=== PATIENT | female | born 1995 | race Two or more races ===

== ENCOUNTER 2021-10-17 12:11 | Emergency (ER) | payer OTHER ==
[~2021-10-17] VITALS: Ht 144.8 cm; Wt 56.7 kg
[2021-10-17] MEDS ORDERED: PRENATAL + DHA1 EAC1 PO (12:19)
== END 2021-10-17 13:34 | disposition home or self-care (01) ==
LOC: ER 12:11
DX: N61.0 Mastitis without abscess (principal)

== ENCOUNTER 2021-12-12 16:50 | Outpatient (CLI) | payer BC ==
[~2021-12-12 16:50] MED LIST: PRENATAL + DHA1 EAC1 PO
== END 2021-12-12 20:48 | disposition home or self-care (01) ==
LOC: OBS/DEL 16:50
PROVIDERS: ATTEND Obstetrics & Gynecology
DX: O46.8X2 Other antepartum hemorrhage, second trimester (principal); O47.02 False labor before 37 completed weeks of gestation, second trimester; Z3A.25 25 weeks gestation of pregnancy

== ENCOUNTER 2022-02-07 12:26 | Outpatient (CLI) | payer BC | END 2022-02-07 13:44 | disposition home or self-care (01) | LOC: NST 12:26 | PROVIDERS: ATTEND Obstetrics & Gynecology | DX: Z34.83 Encounter for supervision of other normal pregnancy, third trimester (principal) ==

== ENCOUNTER 2022-03-11 01:23 | Inpatient (IN) | payer BC ==
[~2022-03-11] VITALS: Ht 149.9 cm; Wt 62.6 kg
== END 2022-03-13 10:59 | disposition home or self-care (01) | DRG 807 ==
LOC: LDR 01:23 → OB/GYN 10:50
PROVIDERS: ADMIT Obstetrics & Gynecology Maternal & Fetal Medicine; ATTEND Obstetrics & Gynecology Maternal & Fetal Medicine
PROC: 10D07Z6 Extraction of Products of Conception, Vacuum, Via Natural or Artificial Opening (ICD-10-PCS; principal; 2022-03-11)
PROC: 0W8NXZZ Division of Female Perineum, External Approach (ICD-10-PCS; 2022-03-11)
PROC: 4A1HXCZ Monitoring of Products of Conception, Cardiac Rate, External Approach (ICD-10-PCS; 2022-03-11)
DX: O66.5 Attempted application of vacuum extractor and forceps (principal); Z37.0 Single live birth; Z3A.38 38 weeks gestation of pregnancy; Z20.822 Contact with and (suspected) exposure to COVID-19

== ENCOUNTER 2022-08-15 18:20 | Emergency (ER) | payer BC, OTHER ==
[~2022-08-15] VITALS: Ht 149.9 cm; Wt 59.0 kg
== END 2022-08-15 21:14 | disposition home or self-care (01) ==
LOC: ER 18:20
DX: L40.9 Psoriasis, unspecified (principal)